=== PATIENT | female | born 1980 | race Two or more races ===

== ENCOUNTER 2021-05-15 14:02 | Emergency (ER) | payer OTHER ==
[2021-05-15 14:21] VITALS: BP 114/73; PULSE 77; TEMP 98.2; BMI 24.5
[2021-05-15] MEDS ORDERED: FLUCONAZOLE 150 MG TABLET PO ONE ×2 (15:47→16:12)
[2021-05-15 16:07] LABS: LYMPH % 24.8 % (8-40)
[2021-05-15 16:10] LABS: BASO % 1.9 % (0-2.0); EOS % 6.1 % (0-4.5); HEMATOCRIT 38.3 % (32.4-45.2); HEMOGLOBIN 12.9 GM/dl (10.7-15.3); MCH 30.2 pg (25.7-33.7); MCHC 33.7 g/dl (32.0-36.0); MEAN CELL VOLUME 89.7 fl (80-96); MEAN PLT VOLUME 11.1 fl (7.5-11.1); MONO % 4.6 % (3.8-10.2); NEUT % 62.6 % (42.8-82.8); PLATELET COUNT 172 10^3/uL (134-434); RBC 4.28 M/mm3 (3.60-5.2); RDW 12.9 % (11.6-15.6); WHITE BLOOD COUNT 8.3 K/mm3 (4.0-10.8)
[2021-05-15 16:22] LABS: BILIRUBIN,TOTAL 0.8 mg/dl (0.2-1); CALCIUM 8.2 mg/dl (8.5-10); CREATININE 0.6 mg/dl (0.55-1.3); TOT PROT 6.7 g/dl (6.4-8.2)
[2021-05-15 16:26] LABS: EPITHELIAL CELLS MODERATE /hpf
== END 2021-05-15 16:45 | disposition home or self-care (01) ==
LOC: FER 14:02
DX: N89.8 Other specified noninflammatory disorders of vagina (principal)
CPT/HCPCS: 36415; 80053; 81003; 81015; 85025; 87077; 87086; 87491; 87591; 87661; 99283-25